=== PATIENT | female | born 1990 | race Caucasian/White ===

== ENCOUNTER 2019-07-25 14:46 | Emergency (ER) | payer SELFPAY ==
[2019-07-25] MEDS ORDERED: Sodium Chloride 0.9% 1,000 ML IV ONE (15:16)
[2019-07-25] MEDS ORDERED: Clindamycin Phosphate in D5W 50 ML ONE (15:29)
[2019-07-25] MEDS ORDERED: Clindamycin Phosphate in D5W 600 MG in Premix Bag 1 BAG IV ONE ×2 (15:30)
[2019-07-25] MEDS ORDERED: Ketorolac 15 MG/ML SDV IVPUSH ONE (15:36)
--- NOTE | 2019-07-25 15:41 | EDM.PDOC ---
ED HPI GENERAL MEDICAL PROBLEM - General Chief Complaint: ENT Problem Stated Complaint: ABCESS TOOTH Time Seen by Provider: 07/25/19 16:30 - History of Present Illness INITIAL COMMENTS - FREE TEXT/NARRATIVE: The 1-year-old female presented to ER for tooth abscess. Patient has been having tooth pain progressively for the last 2 to 3 days. No recent dental work. Has not had any treatment yet. No voice changes. Able to swallow. No dyspnea or difficulty breathing. feels fullness around the area of the tooth. right lower jaw Pain Score (Numeric/FACES): 5 - Related Data Allergies Allergy/AdvReac Type Severity Reaction Status Date / Time No Known Allergies Allergy Verified 07/25/19 14:54 Home Meds: Home Meds . [No Known Home Meds] 07/25/19 [History] Past Medical History - Infectious Disease History Infectious Disease History: Reports: Chicken Pox - Past Surgical History Female Surgical History: Reports: Section Musculoskeletal Surgical History: Reports: Other (See Below) Other Musculoskeletal Surgeries/Procedures:: metal plate in left arm Social & Family History - Family History Family Medical History: Noncontributory - Tobacco Use Smoking Status *Q: Current Every Day Smoker Years of Tobacco use: 7 Packs/Tins Daily: 0.5 - Caffeine Use Caffeine Use: Reports: Soda - Recreational Drug Use Recreational Drug Use: No ED ROS ENT - Review of Systems Review Of Systems: Comprehensive ROS is negative, except as noted in HPI. ED EXAM, ENT - Physical Exam Exam: See Below Text/Narrative:: no stridor no voice changes oropharynx clear, no trismus, tonsils unremarkable. Exam Limited By: No Limitations General Appearance: Alert, No Apparent Distress Ears: Normal External Exam Nose: Normal Inspection Mouth/Throat: Other (there is swelling around tooth 43, (right lower molar). the floor of the tongue has no swelling. there is some induration under the right submandibular region. there is no swelling or tenderness under the left submandibular region. ) Course - Vital Signs Last Recorded V/S: Last Vital Signs Temp 96.1 F L 07/25/19 14:54 Pulse 94 07/25/19 17:45 Resp 16 07/25/19 17:45 BP 122/86 07/25/19 17:45 Pulse Ox 97 07/25/19 17:45 - Orders/Labs/Meds Orders: Active Orders 24 hr Category Date Time Status CULTURE BLOOD [BC] Stat Lab 07/25/19 15:37 Received CULTURE BLOOD [BC] Stat Lab 07/25/19 15:48 Received Blood Culture x2 Reflex Set [OM.PC] Stat Oth 07/25/19 15:08 Ordered Labs: Laboratory Tests 07/25/19 07/25/19 Range/Units 15:20 15:20 WBC 13.04 H (4.0-11.0) K/uL RBC 4.81 (4.30-5.90) M/uL Hgb 14.8 (12.0-16.0) g/dL Hct 45.1 (36.0-46.0) % MCV 93.8 (80.0-98.0) fL MCH 30.8 (27.0-32.0) pg MCHC 32.8 (31.0-37.0) g/dL RDW Std Deviation 43.8 (28.0-62.0) fl RDW Coeff of Brenden 13 (11.0-15.0) % Plt Count 169 (150-400) K/uL MPV 11.60 (7.40-12.00) fL Neut % (Auto) 77.6 (48.0-80.0) % Lymph % (Auto) 12.7 L (16.0-40.0) % [place] % (Auto) 9.4 (0.0-15.0) % Eos % (Auto) 0.2 (0.0-7.0) % Baso % (Auto) 0.1 (0.0-1.5) % Neut # (Auto) 10.1 H (1.4-5.7) K/uL Lymph # (Auto) 1.7 (0.6-2.4) K/uL [place] # (Auto) 1.2 H (0.0-0.8) K/uL Eos # (Auto) 0.0 (0.0-0.7) K/uL Baso # (Auto) 0.0 (0.0-0.1) K/uL Nucleated RBC % 0.0 /100WBC Nucleated RBCs # 0 K/uL Sodium 140 (136-145) mmol/L Potassium 3.7 (3.5-5.1) mmol/L Chloride 103 (98-107) mmol/L Carbon Dioxide 28.6 (21.0-32.0) mmol/L BUN 12 (7.0-18.0) mg/dL Creatinine 1.0 (0.6-1.0) mg/dL Est Cr Clr Drug Dosing 70.39 mL/min Estimated GFR (MDRD) > 60.0 ml/min Glucose 98 (74-106) mg/dL Calcium 9.0 (8.5-10.1) mg/dL Meds: Medications Discontinued Medications Generic Name Dose Route Start Last Admin Trade Name Freq PRN Reason Stop Dose Admin Clindamycin Phosphate 600 mg/ 54 mls @ 100 mls/hr 07/25/19 15:09 07/25/19 15: 40 Sodium Chloride IV 07/25/19 15:41 Not Given ONETIME ONE Sodium Chloride 1,000 mls @ 999 mls/hr 07/25/19 15:16 07/25/19 15:37 Normal Saline IV 07/25/19 16:16 999 mls/hr .BOLUS ONE Administration Clindamycin Phosphate Confirm 07/25/19 15:29 07/25/19 15:40 Cleocin In D5w Administered 07/25/19 15:30 Not Given Dose 50 mls @ as directed .ROUTE .STK-MED ONE Clindamycin Phosphate 600 mg/ 50 mls @ 100 mls/hr 07/25/19 15:30 07/25/19 15: 37 Premix IV 07/25/19 15:59 100 mls/hr ONETIME ONE Administration Ketorolac Tromethamine 15 mg 07/25/19 15:36 07/25/19 15:43 Toradol IVPUSH 07/25/19 15:37 15 mg ONETIME ONE Administration - Re-Assessments/Exams Free Text/Narrative Re-Assessment/Exam: 07/25/19 16:46 tooth absess, unilateral, right sighted submandibular swelling. no signs or or symptoms to suggest ludwigs. repeat exam unchanged from arrival. will transfer to [facility] for ENT eval. deferring ct scan to [place]. prior to leaving ED, patient had intact airway, without worsening in condition or swelling. 07/25/19 16:47 07/25/19 21:38 Departure - Departure Time of Disposition: 21:38 Disposition: DC/Tfer to Acute Hospital 02 Clinical Impression: Tooth abscess - Discharge Information Referrals: PCP,None [Primary Care Provider] - Forms: ED Department Discharge Sepsis Event Note - Evaluation Sepsis Screening Result: No Definite Risk - Focused Exam Vital Signs: Vital Signs Temp Pulse Resp BP Pulse Ox 07/25/19 17:45 94 16 122/86 97 07/25/19 17:34 91 16 122/86 96 07/25/19 16:42 100 16 112/72 100 07/25/19 15:39 111 H 18 116/84 100 07/25/19 14:54 96.1 F L 134 H 16 128/94 H 100 Date Exam was Performed: 07/25/19 Time Exam was Performed: 21:38 - My Orders Last 24 Hours: My Active Orders 07/25/19 15:08 Blood Culture x2 Reflex Set [OM.PC] Stat 07/25/19 15:37 CULTURE BLOOD [BC] Stat 07/25/19 15:48 CULTURE BLOOD [BC] Stat - Assessment/Plan Last 24 Hours: My Active Orders 07/25/19 15:08 Blood Culture x2 Reflex Set [OM.PC] Stat 07/25/19 15:37 CULTURE BLOOD [BC] Stat 07/25/19 15:48 CULTURE BLOOD [BC] Stat
[2019-07-25 15:48] LABS: BLOOD UREA NITROGEN,BUN 12 mg/dL (7.0-18.0); CARBON DIOXIDE,CO2 28.6 mmol/L (21.0-32.0); CHLORIDE,CL 103 mmol/L (98-107); GLUCOSE RANDOM 98 mg/dL (74-106); POTASSIUM,K 3.7 mmol/L (3.5-5.1); SODIUM,NA 140 mmol/L (136-145)
== END 2019-07-25 17:45 ==
LOC: MW.ED 14:46
DX: K04.7 Periapical abscess without sinus (principal); F17.210 Nicotine dependence, cigarettes, uncomplicated
CPT/HCPCS: 36415; 80048; 85025; 87040; 96365; 96375; 99284; J1885; J7030; S0077; 99283; J3490